=== PATIENT | male | born 1950 | race Caucasian/White ===

== ENCOUNTER 2017-02-10 17:56 | Inpatient (IN) ==
[2017-02-10] MEDS ORDERED: Ondansetron 4 MG/2 ML VIAL IVP ONE (18:08)
[2017-02-10] MEDS ORDERED: Aspirin 81 MG TAB.CHEW PO ONE (18:08)
--- NOTE | 2017-02-10 18:49 | Emergency Department Note ---
Disposition Clinical Impression: Diplopia Transient cerebral ischemia Qualifiers: Transient cerebral ischemia type: unspecified Qualified Code(s): G45.9 - Transient cerebral ischemic attack, unspecified Disposition: Admitted As Inpatient Condition: Good [facility] Provider[facility] - Forms: ED Satisfaction Letter Time of Disposition: 20:17 Neuro HPI - General Chief Complaint: ED Headache Stated Complaint: high BP, MADRID Time Seen by Provider: 02/10/17 18:08 Source: patient, EMS Mode of arrival: EMS Limitations: no limitations Nursing Notes Reviewed: Yes Vital Signs Reviewed: Yes - History of Present Illness HPI Narrative: Patient presents from the [facility] for evaluation of facial asymmetry and blurry vision started at 10 AM this morning. Patient denies any stroke history. The symptoms have resolved on arrival here. Denies any symptoms or complaints at this time. EMS transportation was uneventful. The [facility] is concerned and sent him over here for evaluation Onset of Symptoms Date: 02/10/17 Onset of Symptoms Time: 18:48 Symptom Onset Unknown: Yes Timing confirmed by: family member History of same: No Severity: none Symptoms Improving: Yes Improves with: time Worsens with: none Associated symptoms: Reports: denies other symptoms Treatments Prior to Arrival: IV, monitor, prehospital POC glucose - Related Data Allergies/Adverse Reactions: Allergies Allergy/AdvReac Type Severity Reaction Status Date / Time rabeprazole Allergy See Verified 02/10/17 18:06 Comments All systems ED: reviewed and negative except as stated. Review of Systems: As Per HPI Constitutional: Denies: fever, chills, weakness Eyes: Reports: vision change ENT ED: Denies: congestion Cardiovascular: Denies: chest pain, palpitations, dyspnea on exertion, orthopnea Respiratory: Denies: cough, dyspnea, wheezes, hemoptysis Gastrointestinal: Denies: abdominal pain, nausea, vomiting, diarrhea, constipation Genitourinary: Denies: urgency, dysuria, frequency Musculoskeletal: Denies: back pain, neck pain Neurological: Reports: weakness, paresthesias. Denies: headache, numbness, confusion, abnormal gait Psychiatric: Denies: anxiety, depression Endocrine: Denies: fatigue Allergic/Immunologic: Denies: facial swelling Past Medical History - Past Medical History Attestation: Yes The following information was validated with the patient. Source: patient Medical history: Reports: arthritis, coronary artery disease, hypertension, migraine, syncope Psychiatric history: Reports: depression - Social History Smoking Status: Never smoker Alcohol use: Reports: none Drug use: Reports: none Physical Exam - General Limitations: no limitations General appearance: alert - Head Head exam: atraumatic, normocephalic, normal inspection - Eye Eye exam: Present: normal appearance, PERRL, EOMI. Absent: miosis, mydriasis - ENT ENT exam: normal exam, normal oropharynx, mucous membranes moist - Neck Neck exam: Present: normal inspection, full ROM, trachea midline - Chest Chest inspection: Present: normal inspection, symmetric chest wall rise - Respiratory Respiratory exam: Present: normal lung sounds bilaterally - Cardiovascular Cardiovascular exam: Present: regular rate, normal rhythm, normal heart sounds - Abdominal Exam Abdominal exam: Present: soft, Non-Tender, normal bowel sounds. Absent: tenderness, distention, guarding, rebound, rigidity, Ruiz's sign, Rovsing's sign, tenderness at McBurney's Point - Extremities Exam Extremities exam: Present: normal inspection, full ROM, normal capillary refill. Absent: tenderness, pedal edema - Back Exam Back exam: Present: normal inspection - Neurological Exam Neurological exam: Present: alert, oriented X3, CN II-XII intact, normal gait. Absent: motor sensory deficit - Psychiatric Psychiatric exam: Present: normal affect, normal mood - Skin Skin exam: Present: warm, dry, intact, normal color Course Course Narrative: Patient seen and examined the time of arrival. See history of present illness. 66-year-old male presents from the [facility] for evaluation for blurry vision and left-sided facial droop onset earlier this morning. Symptoms have resolved completely on presentation here. Patient has never had a stroke in the past and does have other concerning medical issues. Denies any recent trauma or illnesses. Denies fevers chills chest pain shortness of breath headache or vision change. Neurologic evaluation completed at the bedside shows stable exam with no facial asymmetry no slurred speech no ataxia no signs of trauma or injuries. Neurologic evaluation completed at the bedside immediately on presentation. Facial asymmetry is not noted. Patient has normal cranial nerves III through XII. Oropharynx is patent.Ocular muscles are intact pupils are equal round reactive to light. Lungs are clear heart is regular. No stridor no trismus on exam. Patient has normal function of the upper and lower extremity bilaterally no cerebellar function deficits at this time. In fact he was ambulatory from the cot to the bed here in the emergency room. stroke alert was not called at this time secondary to the resolving symptoms. Patient has no symptoms on presentation here. Evaluation will be completed with CT imaging of the head chest x-ray EKG labs including urinalysis and CBC and chemistry. Disposition will be admission to hospital for what appears to be TIA-like symptoms. Otherwise the patient's NIH stroke scale is 0 at this point. We will continue to monitor his treatment course is completed and expect admission to be completed shortly after imaging is resulted. - Reevaluation(s) Reevaluation #1: CT imaging is negative. The is actually at the bedside in the room at this point. We reviewed the presentation symptoms EKG as well as the patient's physical exam evaluation. She says that he is acting completely normal at this time. There is subtle left-sided facial droop but she is not aware if this was old or new at this point. Otherwise the examination is benign. Patient will have completion of the laboratory workup and admission for stroke evaluation here in the hospital. Patient family members comfortable with this plan appreciate her concerning care. Time: 19:36 Reevaluation #2: Patient is otherwise stable. Discussion was had with the on-call hospitalist nurse practitioner Stefani reed. No other concerns or issues noted at this time. Patient has been provided with aspirin on here. Admission process to be completed this point. Patient is otherwise stable to monitor the admission process is completed Time: 20:17 Vital Signs Temperature 99.7 F H 02/10/17 17:59 Pulse Rate 91 02/10/17 17:59 Respiratory Rate 18 02/10/17 17:59 Blood Pressure 172/111 02/10/17 17:59 O2 Sat by Pulse Oximetry 94 02/10/17 17:59 Temperature 99.7 F H 02/10/17 17:59 Pulse Rate 91 02/10/17 17:59 Respiratory Rate 18 02/10/17 17:59 Blood Pressure 172/111 02/10/17 17:59 O2 Sat by Pulse Oximetry 95 02/10/17 18:11 Oxygen Delivery Oxygen Delivery Room Air Neuro Symptoms/Deficit - MDM Narrative Medical decision making narrative: Strokelike symptoms, double vision - Medical Records Medical records reviewed: Yes I reviewed the patient's medical records. - Lab Data Lab results reviewed: Yes I reviewed the patient's lab results. - Radiology Data Radiology results reviewed: Yes I reviewed the patient's radiology results. CT imaging of the head is negative for acute intracranial bleed or pathology. Chest x-ray stable - EKG Data EKG attestation: Yes I reviewed and interpreted this EKG. EKG shows normal: sinus rhythm, axis, intervals, QRS complexes, ST-T waves Rate: normal Rhythm: NSR Napoleon/QRS: left axis deviation Heart block present: 1st Degree When compared to previous EKG there are: no significant changes Interpretation: no acute changes, unchanged when compared to prior tracing (date ) (04/06/99) NIH Stroke Scale - Level of Consciousness LOC: Alert - LOC Questions LOC Questions: Answers both correctly - LOC Commands LOC Commands: Performs both correctly - Best Gaze Best Gaze: Normal - Visual Visual: No visual loss - Facial Palsy Facial Palsy: Normal - Motor Arms Motor Arm-Left: No drift for 10 seconds Motor Arm-Right: No drift for 10 seconds - Motor Legs Motor Leg-Left: No drift for 5 seconds Motor Leg-Right: No drift for 5 seconds - Limb Ataxia Limb Ataxia: Normal, No Ataxia - Best Language Best Language: No aphasia - Dysarthria Dysarthria: Normal - Extinction and Inattention Extinction and Inattention: Normal TPA Checklist - LKW: 3-4.5 hrs Add. Warnings/Precautions Patient/family understanding: The patient/family members have been counseled and understood the risk, benefit , and alternatives of treatment.
[2017-02-10 19:00] LABS: Bilirubin,Urine Negative (Negative); Blood,Urine Negative (Negative); Clarity,Urine Clear (Clear); Color,Urine Yellow (Yellow); Glucose,Urine (UA) Normal (Normal); Ketones,Urine Negative (Negative); Leukocyte Esterase,Urine Negative (Negative); Nitrite,Urine Negative (Negative); Protein,Urine Negative (Neg-Trace); Specific Gravity,Urine 1.024 (1.010-1.025); Urobilinogen,Urine Normal (Normal)
[2017-02-10 19:30] LABS: Basophils # 0.1 K/mcL (0.0-0.2); Basophils % 1.1 %; Eosinophils # 0.4 K/mcL (0.0-0.6); Eosinophils % 4.6 %; Hematocrit 44.2 % (37.5-50.1); Hemoglobin 14.8 g/dL (12.9-16.9); Immature Granulocytes % 0.4 % (0-4); Immature Platelets 2.8 % (1.1-6.1); Lymphocytes # 2.1 K/mcL (0.6-4.6); Lymphocytes % 24.9 %; Mean Corpuscular HGB Conc 33.5 g/dL (31.6-35.5); Mean Corpuscular Hemoglobin 30.4 pg (28.0-33.3); Mean Corpuscular Volume 90.8 fL (83.0-100.0); Mean Platelet Volume 9.5 fL (9.4-12.4); Monocytes # 0.6 K/mcL (0.0-1.3); Monocytes % 6.5 %; Neutrophils # 5.3 K/mcL (1.6-8.9); Platelet Count 234 K/mcL (140-400); Red Blood Count 4.87 M/mcL (4.19-5.50); Segmented Neutrophils % 62.5 %
[2017-02-10 19:39] LABS: Prothrombin Time 11.2 Seconds (9.4-12.1)
[2017-02-10 19:42] LABS: BUN/Creatinine Ratio 20 (6-26); Blood Urea Nitrogen 18 mg/dL (8-26); Calcium 9.1 mg/dL (8.6-10.8); Carbon Dioxide 27 mEq/L (19-29); Chloride 103 mEq/L (98-109); Glucose 101 mg/dL (70-99); Osmolality,Calculated 288 (280-300); Potassium 3.9 mEq/L (3.5-4.5); Sodium 138 mEq/L (136-145); eGFR For African Americans > 60 (> 60); eGFR For Non-African Americans > 60 (> 60)
[2017-02-10] MEDS ORDERED: Ondansetron 4 MG/2 ML VIAL IVP PRN (20:59)
[2017-02-10] MEDS ORDERED: Naloxone 0.4 MG/ML INJ IVP PRN (20:59)
[2017-02-10] MEDS ORDERED: hydroCHLOROthiazide 25 MG TABLET PO SCH (21:15)
--- NOTE | 2017-02-10 21:16 | Internal Med History&Physical ---
<Stefani Andrea M - Last Filed: 02/10/17 21:52> Date of Encounter: 02/10/17 Time of Encounter: 21:13 Assessment and Plan (1) Transient cerebral ischemia Current visit: Yes Status: Acute Patient reported having double vision, dizziness, left arm tingling starting at 10 am today, symptoms resolved. Blood pressure has been elevated. CT of the head was negative for acute intracranial abnormality. 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 Qualifiers: Transient cerebral ischemia type: unspecified Qualified Code(s): G45.9 - Transient cerebral ischemic attack, unspecified (2) Hypertensive emergency Current visit: Yes Status: Acute Patient reports he was having low blood pressures and so his provider stopped all blood pressure medications 2 weeks ago. He reports he has been having headaches the last several days and his blood pressures have been running high. He reports today at about 10 AM, he noted double vision, dizziness, and left arm tingling. Symptoms are now resolved. 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 Will restart losartan at low dose. Monitor blood pressures and titrate medications as appropriate. (3) Chest pressure Current visit: Yes Status: Acute Patient reports that earlier today he developed Palpitations and chest pressure , the same time he developed the double vision and left arm tingling. Likely secondary to hypertensive emergency with elevated blood pressures. Troponin negative at 0.00. EKG did not demonstrate any ischemic changes. 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 He denies any increased shortness of breath from baseline. CXR with stable left basilar atelectasis. (5) DVT prophylaxis Current visit: Yes Status: Acute anti-embolic stockings lovenox 40mg SQ daily. Internal Medicine - H&P: HPI Chief complaint: headache, dizziness, left sided tingling Admitted From: Emergency Dept Plans for Post Hospital Care: Home History of present illness: Mr. Gonzalez is a 66 year old male with HTN, COPD, arthritis, CAD presented from the [facility] with complaints of dizziness, double vision, left arm tingling and palpitations. Patient reports that a few weeks ago his blood pressure was running very low - in the 80s systolic, and his provider stopped all his blood pressure medications. He reports that the last several days, he's been having a headache, and his blood pressure has been running high. Today, he developed double vision, dizziness and his left arm was tingling, and he also felt some chest pressure and palpitations. These symptoms started at 10am, [facility] His symptoms were resolved by the time of his arrival to [facility] ED. He reports chronic shortness of breath related to his COPD. He denies any nausea, vomiting, fever, chills, sweats, diarrhea. Evaluation in the ED included an EKG which showed sinus rhythm with 1st degree AV block. CT of the head was negative for acute intracranial abnormality. CXR showed no acute cardiopulmonary abnormality. Troponin was negative at 0.00 and other labs were grossly normal. He was hypertensive with blood pressure 172/111 on arrival, improving to 141/94 with out anti-hypertensive intervention. On exam, patient alert and oriented, in no acute distress. Heart has regular rate and rhythm. Lungs clear bilaterally to auscultation. Cranial nerves in tact, strength equal bilaterally, no pronator drift, no facial droop, no speech deficit. Past Med Surg Social Fam HX - Past Medical History Medical history: arthritis, COPD, coronary artery disease, hypertension, migraine, syncope Psychiatric history: depression - Past Surgical History Surgical History: arthroscopy, cholecystectomy, herniorrhaphy - Social History Smoking Status: Never smoker Alcohol use: none Drug use: none - Family History Father Living Status: Age at : 60 Hx Family Cardiac Disorders: Yes Sister Hx Family Cardiac Disorders: Yes (sister 1) Hx Family Cancer: Yes (sister 2) Hx Family Autoimmune Disorders: Yes (sister 3 - lupus- ) Mother Living Status: Still Living Hx Family Cardiac Disorders: Yes Internal Medicine - H&P: Meds Atorvastatin [Lipitor] 5 mg PO HS 02/10/17 [History] BuPROPion SR (12 HR) [Wellbutrin SR] 150 mg PO 1200 02/10/17 [History] Carboxymethylcellulose Sodium [Refresh Liquigel] 1 drop BOTH EYES TID 02/10/17 [ History] Cyclobenzaprine HCl 5 mg PO TID PRN 02/10/17 [History] Gabapentin [Neurontin] 400 mg PO BID 02/10/17 [History] Gabapentin [Neurontin] 600 mg PO HS 02/10/17 [History] Meclizine HCl [Bonine] 12.5 mg PO TID PRN 02/10/17 [History] Meloxicam [Mobic] 7.5 mg PO DAILY 02/10/17 [History] Omeprazole [PriLOSEC] 20 mg PO BIDAC 02/10/17 [History] Sertraline [Zoloft] 200 mg PO DAILY 02/10/17 [History] Sulfacetamide Sod/Sulfur/Urea [Bp Cleansing Wash] 1 appl TP DAILY 02/10/17 [ History] Allergies rabeprazole Allergy (Verified 02/10/17 18:06) See Comments All Systems PM: A 10-system review of systems was performed and is negative for pertinent findings except as documented above in the HPI. - Constitutional Constitutional: no chills, no fever(s), no night sweats - EENT Eyes: blurry vision, change in vision, no discharge, no pain, no photophobia Ears: no ear discharge, no ear pain, no tinnitus Nose, mouth and throat: no dysphagia, no nasal discharge, no neck pain, no sore throat - Cardiovascular Cardiovascular ROS IM: dyspnea (chronic), lightheadedness, palpitations, no chest pain, no diaphoresis, no syncope - Respiratory Respiratory: dyspnea (chronic), no cough, no wheezing, no excessive phlegm production - Gastrointestinal Gastrointestinal: no abdominal pain, no diarrhea, no hematemesis, no hematochezia, no melena, no nausea, no vomiting - Musculoskeletal Musculoskeletal ROS IM: tingling (left arm), no numbness - Integumentary Integumentary IM: no rash, no unusual bruising - Neurological Neurological ROS: dizziness, tingling (left arm), no confusion, no convulsions, no focal weakness, no numbness, no tremor(s) - Hematologic/Lymphatic Hematologic/Lymphatic: no easy bruising - Constitutional Vitals: Temp Pulse Resp BP Pulse Ox 99.7 F H 80 18 148/88 92 02/10/17 17:59 02/10/17 20:17 02/10/17 20:52 02/10/17 20:52 02/10/17 20:17 General appearance: Present: A&O X 3, morbidly obese, pleasant, no acute distress - Head Head exam: Present: atraumatic, normocephalic - Eye Eye exam: Present: PERRL, conjuntiva pink, sclera anicteric Pupils: Present: PERRL - Neck Neck exam general surgery: Present: supple, trachea midline. Absent: lymphadenopathy - Respiratory Respiratory exam: Present: CTAB. Absent: accessory muscle use, rales, rhonchi, wheezes - Cardiovascular Cardiovascular exam: Present: RRR, +S1, +S2. Absent: diastolic murmur, gallop, rubs, systolic murmur - GI/Abdominal GI/Abdominal exam: Present: normal bowel sounds, soft, no peritoneal signs. Absent: distended, tenderness - Extremities Exam Extremities exam: Present: warm, radial pulses palpable and symmetrical. Absent : calf tenderness, cyanotic, pedal edema - Neurological Exam Neurological exam: Present: CN II-XII intact, oriented X3, no focal deficits. Absent: pronater drift, facial droop, speech deficit - Expanded Neurological Exam Cranial Nerves: EOM's intact PM: Normal, gag reflex PM: Normal, nystagmus PM: Abnormal Right, Abnormal Left (horizontal nystagmus), tongue deviation PM: Normal Neuro motor strength exam: LUE: 5, RUE: 5, LLE: 5, RLE: 5 - Skin Skin exam: Present: dry, intact Internal Med - H&P Results - Labs CBC & Chem 7: 02/10/17 19:13 02/10/17 19:13 Labs: All Lab Results (24 Hours) 02/10/17 02/10/17 02/10/17 Range/Units 18:49 19:13 19:13 WBC 8.4 (4.3-11.1) K/mcL RBC 4.87 (4.19-5.50) M/mcL Hgb 14.8 (12.9-16.9) g/dL Hct 44.2 (37.5-50.1) % MCV 90.8 (83.0-100.0) fL MCH 30.4 (28.0-33.3) pg MCHC 33.5 (31.6-35.5) g/dL RDW 12.0 (11.5-14.5) % Plt Count 234 (140-400) K/mcL MPV 9.5 (9.4-12.4) fL Immature Gran % 0.4 (0-4) % Seg Neutrophils % 62.5 % Lymphocytes % 24.9 % Monocytes % 6.5 % Eosinophils % 4.6 % Basophils % 1.1 % Neutrophils # 5.3 (1.6-8.9) K/mcL Lymphocytes # 2.1 (0.6-4.6) K/mcL Monocytes # 0.6 (0.0-1.3) K/mcL Eosinophils # 0.4 (0.0-0.6) K/mcL Basophils # 0.1 (0.0-0.2) K/mcL Immature Plt Fraction 2.8 (1.1-6.1) % PT 11.2 (9.4-12.1) Seconds INR 1.0 APTT 28.0 (26.0-36.0) Seconds Sodium (136-145) mEq/L Potassium (3.5-4.5) mEq/L Chloride (98-109) mEq/L Carbon Dioxide (19-29) mEq/L BUN (8-26) mg/dL Creatinine (0.72-1.25) mg/dL Est GFR ( Amer) (> 60) Est GFR (Non-Af Amer) (> 60) BUN/Creatinine Ratio (6-26) Glucose (70-99) mg/dL Calculated Osmolality (280-300) Calcium (8.6-10.8) mg/dL Troponin I (0-0.03) ng/mL Urine Color Yellow (Yellow) Urine Clarity Clear (Clear) Urine pH 6.0 (5.0-8.0) pH Units Ur Specific [place] 1.024 (1.010-1.025) Urine Protein Negative (Neg-Trace) mg/dL Urine Glucose (UA) Normal (Normal) mg/dL Urine Ketones Negative (Negative) mg/dL Urine Blood Negative (Negative) Urine Nitrite Negative (Negative) Urine Bilirubin Negative (Negative) Urine Urobilinogen Normal (Normal) mg/dL Ur Leukocyte Esterase Negative (Negative) Ur Culture Indicated? NO (NO) 02/10/17 02/10/17 Range/Units 19:13 19:13 WBC (4.3-11.1) K/mcL RBC (4.19-5.50) M/mcL Hgb (12.9-16.9) g/dL Hct (37.5-50.1) % MCV (83.0-100.0) fL MCH (28.0-33.3) pg MCHC (31.6-35.5) g/dL RDW (11.5-14.5) % Plt Count (140-400) K/mcL MPV (9.4-12.4) fL Immature Gran % (0-4) % Seg Neutrophils % % Lymphocytes % % Monocytes % % Eosinophils % % Basophils % % Neutrophils # (1.6-8.9) K/mcL Lymphocytes # (0.6-4.6) K/mcL Monocytes # (0.0-1.3) K/mcL Eosinophils # (0.0-0.6) K/mcL Basophils # (0.0-0.2) K/mcL Immature Plt Fraction (1.1-6.1) % PT (9.4-12.1) Seconds INR APTT (26.0-36.0) Seconds Sodium 138 (136-145) mEq/L Potassium 3.9 (3.5-4.5) mEq/L Chloride 103 (98-109) mEq/L Carbon Dioxide 27 (19-29) mEq/L BUN 18 (8-26) mg/dL Creatinine 0.91 (0.72-1.25) mg/dL Est GFR ( Amer) > 60 (> 60) Est GFR (Non-Af Amer) > 60 (> 60) BUN/Creatinine Ratio 20 (6-26) Glucose 101 H (70-99) mg/dL Calculated Osmolality 288 (280-300) Calcium 9.1 (8.6-10.8) mg/dL Troponin I 0.00 (0-0.03) ng/mL Urine Color (Yellow) Urine Clarity (Clear) Urine pH (5.0-8.0) pH Units Ur Specific [place] (1.010-1.025) Urine Protein (Neg-Trace) mg/dL Urine Glucose (UA) (Normal) mg/dL Urine Ketones (Negative) mg/dL Urine Blood (Negative) Urine Nitrite (Negative) Urine Bilirubin (Negative) Urine Urobilinogen (Normal) mg/dL Ur Leukocyte Esterase (Negative) Ur Culture Indicated? (NO) - Diagnostic Studies CT scan - head Additional comments: Head CT 02/10/17 18:09 IMPRESSION: No acute intracranial abnormality. D/ / Daniel Hines MD / Daniel Hines MD Interpreting Provider: Daniel Hines MD Chest x-ray Additional comments: Chest X-Ray 02/10/17 18:08 IMPRESSION: No acute cardiopulmonary abnormality detected. Postinflammatory changes at the left lung base. D/ / Serafin Moreno MD / Serafin Moreno MD Interpreting Provider: Serafin Moreno MD <Frederic Hough - Last Filed: 02/10/17 23:40> Date of Encounter: 02/10/17 Internal Medicine - H&P: HPI History of present illness: Mr. Gonzalez is a 66 year old male All Systems PM: A 10-system review of systems was performed and is negative for pertinent findings except as documented above in the HPI. - Constitutional Vitals: Temp Pulse Resp BP Pulse Ox 97.5 F L 79 18 132/90 95 02/10/17 21:51 02/10/17 21:51 02/10/17 21:51 02/10/17 21:51 02/10/17 21:51 Internal Med - H&P Results - Labs CBC & Chem 7: 02/10/17 19:13 02/10/17 19:13 - Attending Attestation I independently obtained history and examined this patient and my medical decision-making was reviewed with the nurse practitioner, Stefani Andrea. I agree with the documented findings, disposition and treatment plan as described. My findings are summarized below: Patient reported sudden onset of blurry vision double vision and palpitations, currently he is symptom free. With physical examination he is awake alert and oriented, heart is regular, lungs are clear, neurologic exam is nonfocal Plan: Start glycerin, monitor blood pressure, we will obtain MRI of the brain to evaluate for CVA versus TIA.
[2017-02-11 01:50] LABS: Basophils # 0.1 K/mcL (0.0-0.2); Basophils % 1.4 %; Eosinophils # 0.4 K/mcL (0.0-0.6); Eosinophils % 5.3 %; Hematocrit 43.5 % (37.5-50.1); Hemoglobin 14.6 g/dL (12.9-16.9); Immature Granulocytes % 0.3 % (0-4); Lymphocytes # 2.3 K/mcL (0.6-4.6); Lymphocytes % 31.7 %; Mean Corpuscular HGB Conc 33.6 g/dL (31.6-35.5); Mean Corpuscular Hemoglobin 30.6 pg (28.0-33.3); Mean Corpuscular Volume 91.2 fL (83.0-100.0); Mean Platelet Volume 9.6 fL (9.4-12.4); Monocytes # 0.5 K/mcL (0.0-1.3); Monocytes % 6.5 %; Platelet Count 196 K/mcL (140-400); Red Blood Count 4.77 M/mcL (4.19-5.50); Red Cell Distribution Width 12.2 % (11.5-14.5); Segmented Neutrophils % 54.8 %
[2017-02-11 02:03] LABS: BUN/Creatinine Ratio 16 (6-26); Blood Urea Nitrogen 16 mg/dL (8-26); Calcium 9.3 mg/dL (8.6-10.8); Carbon Dioxide 29 mEq/L (19-29); Chloride 104 mEq/L (98-109); Chol/HDL Ratio 2.8 (0-4.9); Cholesterol 125 mg/dL (< 200); Glucose 136 mg/dL (70-99); HDL Cholesterol 45 mg/dL (40-59); LDL Cholesterol,Calculated 62 mg/dL (0-99); Osmolality,Calculated 291 (280-300); Potassium 3.7 mEq/L (3.5-4.5); Sodium 139 mEq/L (136-145); Triglycerides 89 mg/dL (< 150); eGFR For African Americans > 60 (> 60); eGFR For Non-African Americans > 60 (> 60)
[2017-02-11] MEDS: *HR* Enoxaparin 40 MG/0.4 ML SYRINGE SQ SCH (06:13)
[2017-02-11] MEDS ORDERED: Gabapentin 400 MG CAPSULE PO SCH (09:00)
[2017-02-11] MEDS ORDERED: BuPROPion SR (12 HR) 150 MG TABLET PO SCH (12:00)
[2017-02-11] MEDS: Aspirin 81 MG TAB.CHEW PO SCH (13:16)
--- NOTE | 2017-02-11 14:46 | Electrocardiograph Report ---
[address] [address] Test Date: 2017-02-10 Pat Name: Ronald Gonzalez Department: 104 Room: 2NE20 Gender: M Hand Roller: TM : 1950 Requested By: Javier Gorman Order Number: [id number] Reading MD: Li Walker Measurements Intervals [place] Rate: 84 P: -2 DC: 213 QRS: -34 QRSD: 88 T: -7 QT: 346 QTc: 387 Interpretive Statements SINUS RHYTHM WITH FIRST DEGREE AV BLOCK MARKED LEFT AXIS DEVIATION PATTERN CONSISTENT WITH PULMONARY DISEASE Electronically Signed On 02-11-2017 14:44:47 EDT by Li Walker
[2017-02-11] MEDS: Acetaminophen 325 MG TABLET PO PRN (20:09)
--- NOTE | 2017-02-11 20:33 | Carotid Imaging Report ---
Carotid Duplex Patient Name:Ronald Gonzalez Order Number:[id number] Procedure Date:02/11/2017 Date:2Age:66 yrs Gender:Male Lt BP:138 / 92 mmHg Rt.BP:138 / 92 mmHgHeart Rate: Location: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 Findings Prior Study: No prior study available for comparison. Carotid Results Right PSV EDV Assessment Proximal CCA 126 11 Normal Mid CCA 88 28 Normal Distal CCA 74 27 Normal Bifurcation 69 22 Normal Proximal ICA 99 24 Normal Mid ICA 84 18 Normal Distal ICA 81 33 Normal ECA 118 36 Normal Vertebral Artery 37 13 Antegrade Flow Left PSV EDV Assessment Proximal CCA 92 31 Normal Mid CCA 80 30 Normal Distal CCA 65 22 Normal Bifurcation 72 29 Normal Proximal ICA 60 21 Normal Mid ICA 49 19 Normal Distal ICA 55 19 Normal ECA 57 20 Normal Vertebral Artery 31 11 Antegrade Flow Ratio's Right ICA/CCA Values: 99/88 Left ICA/CCA Values: 60/80 Updated by Serafin Albert MD, FACS on 02/11/2017 8:24:36 PM Serafin Albert MD electronically signed on 02/11/2017 8:24:58 PM with status of Final
[2017-02-11] MEDS ORDERED: Gabapentin 300 MG CAPSULE PO SCH (21:00)
[2017-02-12] MEDS: Acetaminophen 325 MG TABLET PO PRN ×2 (01:56→09:28)
[2017-02-12] MEDS: *HR* Enoxaparin 40 MG/0.4 ML SYRINGE SQ SCH (05:46)
[2017-02-12 07:38] VITALS: BP 132/86
[2017-02-12] MEDS ORDERED: Gabapentin 400 MG CAPSULE PO SCH (09:00)
[2017-02-12] MEDS: Aspirin 81 MG TAB.CHEW PO SCH (09:26)
--- NOTE | 2017-02-12 09:54 | Internal Med Progress Note ---
Date of Encounter: 02/11/17 Time of Encounter: 10:00 - Assessment and plan (1) Hypertensive urgency Status: Acute Assessment and plan: Patient was noted to have uncontrolled blood pressure in the emergency room, which gradually improved. Continue low-dose losartan that has been started. Blood pressure is currently improving. (2) Transient cerebral ischemia Status: Acute Assessment and plan: Symptoms of blurred vision and left arm paresthesias have resolved. CT head done in the emergency room showed no evidence of acute infarct or bleed. Will check MRI brain, echocardiogram and carotid Doppler to rule out acute stroke. Telemetry monitoring. Lipid profile noted to be within normal limits. Qualifiers: Transient cerebral ischemia type: unspecified Qualified Code(s): G45.9 - Transient cerebral ischemic attack, unspecified (3) COPD (chronic obstructive pulmonary disease) Status: Chronic Qualifiers: COPD type: unspecified COPD Qualified Code(s): J44.9 - Chronic obstructive pulmonary disease, unspecified (4) Essential hypertension Status: Chronic (5) CAD (coronary artery disease) Status: Chronic Qualifiers: Coronary Disease-Associated Artery/Lesion type: [place] artery [place] vs. transplanted heart: [place] heart Associated angina: without angina Qualified Code(s): I25.10 - Atherosclerotic heart disease of [place] coronary artery without angina pectoris (6) Depression Status: Chronic Qualifiers: Depression Type: unspecified Qualified Code(s): F32.9 - Major depressive disorder, single episode, unspecified - Subjective Interval history: Reports persistent headache although slightly improved. Resolved blurred vision , left arm tingling and numbness. No nausea, vomiting, chest pain or dyspnea. - Constitutional Vitals: Temp Pulse Resp BP Pulse Ox 97.4 F L 72 18 132/86 97 02/12/17 07:37 02/12/17 07:37 02/12/17 07:37 02/12/17 07:37 02/12/17 07:37 General appearance: Present: A&O X 3, morbidly obese, answers questions appropriately - Respiratory Respiratory exam: Present: CTAB. Absent: accessory muscle use, rales, rhonchi, wheezes - Cardiovascular Cardiovascular exam: Present: RRR, +S1, +S2. Absent: diastolic murmur, gallop, rubs, systolic murmur - GI/Abdominal GI/Abdominal exam: Present: normal bowel sounds, soft, no peritoneal signs. Absent: distended, tenderness - Extremities Exam Extremities exam: Present: full ROM, warm, radial pulses palpable and symmetrical. Absent: calf tenderness, cyanotic, pedal edema - Neurological Exam Neurological exam: Present: CN II-XII intact, oriented X3, no focal deficits. Absent: pronater drift, facial droop, speech deficit Internal Medicine: Result - Labs CBC & Chem 7: 02/11/17 01:28 02/11/17 01:28 - ABG Interpretation ABG results: PT/INR, D-dimer PT 11.2 Seconds (9.4-12.1) 02/10/17 19:13 Consult Discharge Plan - Plan Additional Instructions: F/up with PCP in 1-2 weeks [facility] - Prescriptions: Metoprolol XL (24 HR) Succ [Toprol Xl] 25 mg PO DAILY #30 tab.er.24h
--- NOTE | 2017-02-12 09:57 | Discharge Summary ---
Date of Encounter: 02/12/17 Time of Encounter: 09:54 - Discharge Diagnosis (1) Transient cerebral ischemia Priority: Primary Status: Acute Qualifiers: Transient cerebral ischemia type: unspecified Qualified Code(s): G45.9 - Transient cerebral ischemic attack, unspecified (2) Migraine Priority: Primary Status: Acute Qualifiers: Migraine type: without aura Status migrainosus presence: without status migrainosus Intractability: not intractable Qualified Code(s): G43.009 - Migraine without aura, not intractable, without status migrainosus (3) COPD (chronic obstructive pulmonary disease) Priority: Secondary Status: Chronic Qualifiers: COPD type: unspecified COPD Qualified Code(s): J44.9 - Chronic obstructive pulmonary disease, unspecified (4) Essential hypertension Priority: Secondary Status: Chronic (5) CAD (coronary artery disease) Priority: Secondary Status: Chronic Qualifiers: Coronary Disease-Associated Artery/Lesion type: [place] artery [place] vs. transplanted heart: [place] heart Associated angina: without angina Qualified Code(s): I25.10 - Atherosclerotic heart disease of [place] coronary artery without angina pectoris (6) Depression Priority: Secondary Status: Chronic Qualifiers: Depression Type: unspecified Qualified Code(s): F32.9 - Major depressive disorder, single episode, unspecified (7) Pulmonary fibrosis Priority: Secondary Status: Chronic - Discharge Medications Prescriptions: Metoprolol XL (24 HR) Succ [Toprol Xl] 25 mg PO DAILY #30 tab.er.24h Home Medications: Atorvastatin [Lipitor] 5 mg PO HS 02/10/17 [History] BuPROPion SR (12 HR) [Wellbutrin SR] 150 mg PO 1200 02/10/17 [History] Carboxymethylcellulose Sodium [Refresh Liquigel] 1 drop BOTH EYES TID 02/10/17 [ History] Cyclobenzaprine HCl 5 mg PO TID PRN 02/10/17 [History] Gabapentin [Neurontin] 400 mg PO BID 02/10/17 [History] Gabapentin [Neurontin] 600 mg PO HS 02/10/17 [History] Meclizine HCl [Bonine] 12.5 mg PO TID PRN 02/10/17 [History] Meloxicam [Mobic] 7.5 mg PO DAILY 02/10/17 [History] Omeprazole [PriLOSEC] 20 mg PO BIDAC 02/10/17 [History] Sertraline [Zoloft] 200 mg PO DAILY 02/10/17 [History] Sulfacetamide Sod/Sulfur/Urea [Bp Cleansing Wash] 1 appl TP DAILY 02/10/17 [ History] Metoprolol XL (24 HR) Succ [Toprol Xl] 25 mg PO DAILY #30 tab.er.24h 02/12/17 [ Rx] Allergies/Adverse Reactions: Allergies rabeprazole Allergy (Verified 02/10/17 18:06) See Comments Date of admission: 02/10/17 23:47 [facility] care [facility] Discharging clinician: Isha Keane Anticipated date of discharge: 02/12/17 - Patient Status Disposition: Home, Self-Care Condition: Good Functional capacity at discharge: independent ambulation Overall status at discharge: patient is back to baseline - Discharge Instructions Follow Up With: [facility] [Primary Care Provider[facility] - Additional Instructions: F/up with PCP in 1-2 weeks - Diet and Activity Activity: resume usual activities as tolerated Diet: low fat, low cholesterol, low salt diet Hospital course: Mr. Gonzalez is a 66 year old male with history of hypertension, who was admitted with headache, blurred vision and left arm paresthesias. Patient was noted to have hypertensive urgency and responded quickly to oral antihypertensives. He was recently taken off his blood pressure medications due to having episodes of hypotension. Patient also had history of migraine a few years back and responded to oral metoprolol, which was recently stopped. Blood pressure was gradually well controlled. CT head and MRI brain showed no evidence of acute stroke/bleed. Echocardiogram was done which showed preserved ejection fraction, mild concentric LVH, mild left ventricle diastolic dysfunction and no significant valvular dysfunction. Carotid Doppler ultrasound showed essentially normal bilateral carotid systems. Patient is medically stable for discharge at this time with outpatient follow- up. Low-dose beta silver is being restarted along with low-dose losartan. He is recommended to follow up with his primary care provider. - Time Spent with Patient Total time spent providing and/or coordinating discharge services: Greater than 30 minutes (40 min) - Constitutional Vitals: Temp Pulse Resp BP Pulse Ox 97.4 F L 72 18 132/86 97 02/12/17 07:37 02/12/17 07:37 02/12/17 07:37 02/12/17 07:37 02/12/17 07:37 General appearance: Present: A&O X 3, morbidly obese, answers questions appropriately - Cardiovascular Cardiovascular exam: Present: RRR, +S1, +S2. Absent: diastolic murmur, gallop, rubs, systolic murmur
== END 2017-02-12 13:30 | disposition home or self-care (01) | DRG 69 ==
LOC: EMEROO 17:56 → 2NENU 17:56
PROVIDERS: ADMIT Internal Medicine; ATTEND Internal Medicine

== ENCOUNTER 2020-12-14 20:10 | Inpatient (IN) ==
[2020-12-14 21:05] LABS: Basophils # 0.1 K/mcL (0.0-0.2); Basophils % 0.9 %; Eosinophils # 0.3 K/mcL (0.0-0.6); Eosinophils % 3.2 %; Hematocrit 44.3 % (37.5-50.1); Hemoglobin 14.7 g/dL (12.9-16.9); Immature Granulocytes % 0.2 % (0-4); Lymphocytes # 2.1 K/mcL (0.6-4.6); Lymphocytes % 21.2 %; Mean Corpuscular HGB Conc 33.2 g/dL (31.6-35.5); Mean Corpuscular Hemoglobin 30.3 pg (28.0-33.3); Mean Corpuscular Volume 91.3 fL (83.0-100.0); Mean Platelet Volume 10.1 fL (9.4-12.4); Monocytes # 0.5 K/mcL (0.0-1.3); Monocytes % 5.1 %; Platelet Count 176 K/mcL (140-400); Red Blood Count 4.85 M/mcL (4.19-5.50); Red Cell Distribution Width 12.1 % (11.5-14.5); Segmented Neutrophils % 69.4 %; White Blood Count 10.1 K/mcL (4.3-11.1)
[2020-12-14 21:25] LABS: BUN/Creatinine Ratio 16 (6-26); Blood Urea Nitrogen 23 mg/dL (8-23); Calcium 9.1 mg/dL (8.6-10.3); Carbon Dioxide 26 mEq/L (23-29); Chloride 103 mEq/L (98-107); Glucose 104 mg/dL (70-105); Osmolality,Calculated 286 (280-300); Potassium 3.9 mEq/L (3.5-5.1); Sodium 136 mEq/L (136-145); eGFR For African Americans 59 (> 60); eGFR For Non-African Americans 49 (> 60)
[2020-12-14 21:26] LABS: Troponin I < 0.03 ng/mL (< 0.04)
[2020-12-14] MEDS ORDERED: 0.9 % Sodium Chloride 1,000 ML IVC ONE (22:09)
[2020-12-14] MEDS ORDERED: Melatonin 3 MG TABLET PO PRN (23:17)
[2020-12-14] MEDS ORDERED: Naloxone 0.4 MG/ML INJ IVP PRN (23:17)
[2020-12-14] MEDS ORDERED: Ondansetron 4 MG/2 ML VIAL IVP PRN (23:17)
[2020-12-15 03:37] LABS: BUN/Creatinine Ratio 21 (6-26); Blood Urea Nitrogen 25 mg/dL (8-23); Calcium 9.1 mg/dL (8.6-10.3); Carbon Dioxide 27 mEq/L (23-29); Chloride 104 mEq/L (98-107); Glucose 111 mg/dL (70-105); Osmolality,Calculated 289 (280-300); Potassium 3.9 mEq/L (3.5-5.1); Sodium 137 mEq/L (136-145); eGFR For African Americans > 60 (> 60); eGFR For Non-African Americans 60 (> 60)
[2020-12-15] MEDS: Gabapentin 300 MG CAPSULE PO SCH ×3 (08:15→20:31)
[2020-12-15] MEDS ORDERED: Aspirin 81 MG TAB.CHEW PO SCH (09:00)
[2020-12-15] MEDS ORDERED: Metoprolol XL (24 HR) Succ 25 MG TAB.ER.24H PO SCH ×2 (09:00→12:00)
[2020-12-15] MEDS ORDERED: Acetaminophen/Aspirin/Caffeine TABLET PO ONE (09:19)
[2020-12-15] MEDS: Metoprolol XL (24 HR) Succ 25 MG TAB.ER.24H PO SCH ×2 (13:09→13:51)
[2020-12-15] MEDS ORDERED: Perflutren Lipid Microsphere 1.3 ML in 0.9 % Sodium Chloride 8.7 ML IVP PRN (14:18)
[2020-12-15 15:05] LABS: Thyroid Stimulating Hormone 3.291 mcIU/mL (0.340-5.600)
[2020-12-15] MEDS: Ipratropium/Albuterol Neb 3 ML IH SCH ×2 (15:50→21:34)
[2020-12-15] MEDS: Topiramate 25 MG TABLET PO SCH (20:31)
[2020-12-16] MEDS: Ipratropium/Albuterol Neb 3 ML IH SCH ×4 (03:32→22:26)
[2020-12-16] MEDS: Topiramate 25 MG TABLET PO SCH (08:24)
[2020-12-16] MEDS: Gabapentin 300 MG CAPSULE PO SCH ×3 (08:24→19:48)
[2020-12-16] MEDS: Aspirin 325 MG TABLET PO SCH (08:24)
[2020-12-16] MEDS: lisinopriL 5 MG TABLET PO SCH (08:24)
[2020-12-16] MEDS ORDERED: Ringers Solution, Lactated 500 ML IVC SCH (16:00)
[2020-12-16] MEDS ORDERED: Ibuprofen 400 MG TABLET PO ONE (23:54)
[2020-12-17] MEDS: Ipratropium/Albuterol Neb 3 ML IH SCH ×3 (03:44→16:02)
[2020-12-17] MEDS: lisinopriL 5 MG TABLET PO SCH (07:54)
[2020-12-17] MEDS: Aspirin 325 MG TABLET PO SCH (08:06)
[2020-12-17] MEDS: Gabapentin 300 MG CAPSULE PO SCH ×2 (08:06→15:33)
[2020-12-17] MEDS ORDERED: Ringers Solution, Lactated 1,000 ML IV SCH (11:00)
[2020-12-17] MEDS ORDERED: Ringers Solution, Lactated 1,000 ML IVC SCH (11:30)
[2020-12-17 11:32] VITALS: BP 116/74
== END 2020-12-17 16:41 | disposition home or self-care (01) | DRG 309 ==
LOC: 2ANU 20:10 → EMEROOARM 20:10 → SUATTDRO 22:27 → 2ANU 12-15 00:15 → SUATTDRO 12-15 21:45
PROVIDERS: ADMIT Family Medicine; ATTEND Internal Medicine

== ENCOUNTER 2021-01-01 11:07 | Inpatient (IN) ==
[2021-01-01 12:20] LABS: Basophils # 0.1 K/mcL (0.0-0.2); Basophils % 0.7 %; Eosinophils # 0.3 K/mcL (0.0-0.6); Eosinophils % 3.5 %; Hematocrit 44.4 % (37.5-50.1); Hemoglobin 14.6 g/dL (12.9-16.9); Immature Granulocytes % 0.2 % (0-4); Lymphocytes # 1.8 K/mcL (0.6-4.6); Lymphocytes % 21.8 %; Mean Corpuscular HGB Conc 32.9 g/dL (31.6-35.5); Mean Corpuscular Hemoglobin 30.1 pg (28.0-33.3); Mean Corpuscular Volume 91.5 fL (83.0-100.0); Mean Platelet Volume 10.2 fL (9.4-12.4); Monocytes # 0.5 K/mcL (0.0-1.3); Monocytes % 6.2 %; Neutrophils # 5.4 K/mcL (1.6-8.9); Platelet Count 173 K/mcL (140-400); Red Blood Count 4.85 M/mcL (4.19-5.50); Segmented Neutrophils % 67.6 %
[2021-01-01 12:42] LABS: BUN/Creatinine Ratio 24 (6-26); Blood Urea Nitrogen 24 mg/dL (8-23); Calcium 9.1 mg/dL (8.6-10.3); Carbon Dioxide 26 mEq/L (23-29); Chloride 101 mEq/L (98-107); Glucose 106 mg/dL (70-105); Osmolality,Calculated 290 (280-300); Potassium 3.7 mEq/L (3.5-5.1); Sodium 138 mEq/L (136-145); Troponin I < 0.03 ng/mL (< 0.04); eGFR For African Americans > 60 (> 60); eGFR For Non-African Americans > 60 (> 60)
[2021-01-01] MEDS ORDERED: Naloxone 0.4 MG/ML INJ IVP PRN (12:55)
[2021-01-01] MEDS: *HR* Heparin 5,000 UNIT/ML VIAL SQ SCH (17:44)
[2021-01-02] MEDS: *HR* Heparin 5,000 UNIT/ML VIAL SQ SCH ×2 (05:09→16:20)
[2021-01-02] MEDS ORDERED: Aspirin 325 MG TABLET PO SCH (09:00)
[2021-01-02] MEDS ORDERED: Furosemide 40 MG TABLET PO SCH (09:00)
[2021-01-02] MEDS ORDERED: lisinopriL 5 MG TABLET PO SCH (09:00)
[2021-01-02] MEDS ORDERED: Finasteride 5 MG TABLET PO SCH (09:00)
[2021-01-02] MEDS: Gabapentin 300 MG CAPSULE PO SCH ×2 (09:27→15:15)
[2021-01-02 10:07] VITALS: BP 146/77
[2021-01-03] MEDS ORDERED: Aspirin 81 MG TAB.CHEW PO SCH (09:00)
== END 2021-01-02 16:58 | disposition home or self-care (01) | DRG 309 ==
LOC: EMEROOARM 11:07 → 2NENU 13:38 → SUATTDRO 13:38 → 2NENU 15:25
PROVIDERS: ADMIT Internal Medicine; ATTEND Internal Medicine